=== PATIENT | female | born 1940 | race Caucasian/White ===

== ENCOUNTER 2020-05-25 07:06 | Observation (INO) ==
--- NOTE | 2020-05-21 09:31 | Anesthesiology Consultation ---
Date of Service May 21, 2020 Assessment & Plan (1) Encounter for pre-operative examination: Chart Review Chart Review: Acceptable Risk for Surgery and Patient NOT seen in Pre Admission Testing - Check BSG and PT/INR AM DOS Per nursing assessment 05/20/20, pt denies any recent travel. No known Covid positive contacts or Covid related symptoms. [facility] Rapid Covid testing 05/20/20= negative Seen by cardio 05/13/20= Overall stable at cardio visit. Cardio ensuring patient has follow up this Fall 2019 with [facility] as previously planned to repeat ECHO to follow MV disease. Will also ensure patient follows with vascular in the future to monitor carotid disease. No med changes made at appt. Follow up with pacemaker clinic as scheduled. "Regarding preoperative cardiac evaluation she is clinically stable at today's visit but certainly has significant mitral valve disease increasing perioperative cardiac risk but acceptable given current status " History Surgery Operation Date: 05/25/20 10:40 Proposed Procedures p Left Total Knee Arthroplasty - Willy Kaminski MD Height/Weight Height: 5 ft 5 in Weight: 58.967 kg Allergies Allergy/AdvReac Type Severity Reaction Status Date / Time Estrogens Allergy Severe THROAT Verified 05/20/20 16:02 SWELLING levofloxacin [From Levaquin] Allergy Unknown FACIAL Verified 05/20/20 16:02 NUMBNESS propoxyphene Allergy Unknown FACIAL Verified 05/20/20 16:02 [From Darvocet-N 100] NUMBNESS, NOSEBLEED Medications Home Medications Medication Instructions Recorded Confirmed Last Taken Centrum Silver Women 1 tab PO QAM 11/26/19 05/20/20 12/16/19 albuterol sulfate 2.5 mg INHALATION QID PRN 11/26/19 05/20/20 Unknown albuterol sulfate [Ventolin HFA] 2 puff INHALATION QID PRN 11/26/19 05/20/20 Unknown aspirin [Aspirin Low Dose] 81 mg PO QAM 11/26/19 05/20/20 12/16/19 atenolol 12.5 mg PO QAM 11/26/19 05/20/20 12/16/19 atorvastatin 80 mg PO PM 11/26/19 05/20/20 12/16/19 cholecalciferol (vitamin D3) 25 mcg PO QAM 02/19/20 08/13/20 03/10/20 [Vitamin D3] dicyclomine 20 mg PO QID PRN 11/26/19 05/20/20 Unknown docusate sodium 100 mg PO QAM 11/26/19 05/20/20 12/16/19 fluocinolone acetonide oil 5 drp OTIC (EAR) Q OTHER DAY PRN 11/26/19 05/20/20 Unknown glipizide 2.5 mg PO QAM 11/26/19 05/20/20 12/16/19 hydrochlorothiazide 25 mg PO QAM 11/26/19 05/20/20 12/16/19 levothyroxine 50 mcg PO QAM 11/26/19 05/20/20 12/16/19 losartan 50 mg PO QAM 11/26/19 05/20/20 12/16/19 omega 5-hpo-snx-fish oil [Fish Oil] 1 cap PO QAM 11/26/19 05/20/20 12/16/19 omeprazole 20 mg PO QAM 11/26/19 05/20/20 12/16/19 ondansetron HCl 4 mg PO Q8H PRN 11/26/19 05/20/20 Unknown warfarin 2.5 mg PO HS 11/26/19 05/20/20 12/16/19 fluticasone propionate [Flonase] 2 spray INTRANASAL DAILY PRN 05/20/20 05/20/20 Unknown Past Medical History Medical History (Updated 05/21/20 @ 09:58 by Salma Kelly PA-C) Asthma stable/follows with Dr. Baker Carotid artery disease s/p right carotid endarterectomy (2016) Chronic kidney disease Stage III/PCP monitoring Chronic obstructive pulmonary disease stable/follows with Dr. Baker Diabetes mellitus, type 2 NIDDM -- recently PCP placed glipizide on hold since 04/2020 for an unknown reason. no scheduled follow up per patient. 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 Mitral regurgitation jet is directed anteriorly. Degenerative mitral valve with restricted motion of the posterior mitral valve leaflet- degenerative MV stenosis per 06/2019 ECHO Paroxysmal atrial fibrillation Rheumatoid arthritis no meds Past Family History Family History Sister Family history of diabetes mellitus Daughter Family history of diabetes mellitus Past Surgical History Surgical History History of bowel resection History of carotid endarterectomy right (2017) History of cataract surgery bilateral History of esophagogastroduodenoscopy (EGD) Hx of cholecystectomy Hx of colonoscopy Hx of tubal ligation Social History Smoking Status: Never smoker Do You Dip or Chew Tobacco: No Hx Alcohol Use: No Hx Substance Use: No substance use type: does not use Testing Laboratory Results Laboratory Tests 12/11/19 05/04/20 05/04/20 10:06 09:49 09:49 WBC 8.20 Hgb 11.7 L Hct 37.9 Plt Count 166 PT 20.1 H INR 2.0 H APTT 35.9 H Sodium Potassium Chloride Carbon Dioxide BUN Creatinine Glucose Hemoglobin A1c 5.9 H 05/04/20 09:49 WBC Hgb Hct Plt Count PT INR APTT Sodium 142 Potassium 4.0 Chloride 108 H Carbon Dioxide 27 BUN 17 Creatinine 1.14 Glucose 115 H Hemoglobin A1c Electrocardiogram Date: 12/11/19 AV dual-paced rhythm at 69bpm. Chest X-Ray Date: 12/11/19 Dual lead left subclavian pacemaker is in place. There is moderate cardiomegaly. Extensive mitral annular calcification is noted. There is no pneumothorax or pleural effusion. There is no consolidation to suggest pneumonia. Subtle interstitial thickening with Jhonny B lines is noted. IMPRESSION: Mild i nterstitial thickening which favors mild interstitial pulmonary edema. Moderate cardiomegaly. Echocardiogram Date: 06/11/19 Other Findings: + LVH (mild/concentric) LVEF 65-69%. No RWMA. Severe LAE. Moderate to severe MR. Mitral regurgitation jet is directed anteriorly. Degenerative mitral valve with restricted motion of the posterior mitral valve leaflet. Mild TR/MA. Mild ALBARO. PASP 34mmhg. Grade II diastolic dysfunction. Compared to 08/22/18, no significant change per report. Stress Test Date: 10/10/17 Type: nuclear Lexiscan nuclear cardiac stress test negative for ischemia. Gated SPECT images reveal normal myocardial thickening and wall motion. LVEF 76% post stress. 74% MPHR. Other Testing Pacemaker Check 11/26/19= Medtronic. Implanted 04/14/13. Atrial paced 23%, RV paced 100%. 2.77 volts of battery life with estimated longevity of 3.5 years. Mode DDDR. Normal pacemaker function. Adequate battery reserve. Stable pacing thresholds. Carotid doppler 09/27/18= Right ICA <50% stenosis, left ICA 50-69 stenosis. Consistent with previous exam.
--- NOTE | 2020-05-21 18:16 | History and Physical Report ---
DATE OF ADMISSION: 05/25/2020 CHIEF COMPLAINT: Left knee pain, discomfort and instability. HISTORY OF PRESENT ILLNESS: The patient is an 79-year-old female who presents for surgical treatment of her left knee. She has a several year history of increasing left knee pain and discomfort. Her has been a patient of mine, had both of his knees replaced and she has been waiting until he recovered from this to consider knee replacement surgery. She has got global pain in her left knee. It has gotten worse over time. The more she walks, the more it hurts and she limps more as the day goes on. She tried injections, which helped very minimally. She can only walk a couple of blocks before she is limited by the pain. Her knee also feels unstable. She cannot take NSAIDs as she is on Coumadin and has a pacemaker. Of note, we had scheduled her for surgery in the past but was canceled due to the pandemic. She now would like to have her knee fixed. Her symptoms have only progressed. PAST MEDICAL HISTORY: 1. Hypertension. 2. Elevated cholesterol. 3. Irregular heartbeat with a pacemaker. 4. History of congestive heart failure in the past, followed by Dr. Beltran. 5. Asthma. 6. Diabetes x6 years. 7. Gastroesophageal reflux disease. 8. Hiatal hernia. 9. Hypothyroidism. PAST SURGICAL HISTORY: Includes: 1. Cholecystectomy. 2. Pacemaker placement. 3. LTS. ALLERGIES: DARVOCET, WHICH CAUSES NUMBNESS. CURRENT MEDICINES: Include: 1. Albuterol. 2. Aspirin. 3. Atenolol. 4. Lipitor. 5. Vitamin D3. 6. Dicyclomine. 7. Fluticasone nasal spray. 8. Glipizide. 9. Hydrochlorothiazide. 10. Levothyroxine. 11. Losartan. 12. Multivitamin. 13. Omeprazole. 14. [place]-3. 15. Zoster vaccine. 16. Coumadin 2.5 mg a day. SOCIAL HISTORY: Significant for an 79-year-old female. Lives in [place]. Does not smoke. FAMILY HISTORY: Noncontributory. REVIEW OF SYSTEMS: As above. She is on Coumadin and has a pacemaker in place. Denies any chest pain. She did recently see Dr. Beltran and he felt she was medically optimized. No known bleeding problems. PHYSICAL EXAMINATION GENERAL: Shows a thin, pleasant elderly female. Looks to be in pretty good health. Certainly looks better than her medical history. HEENT: Benign. NECK: Supple, no lymphadenopathy. LUNGS: Clear to auscultation. HEART: Has a regular rate and rhythm. ABDOMEN: Soft, nontender, nondistended. EXTREMITIES: Grossly neurovascularly intact except as follows: Examination of the left knee reveals the patient ambulates independently. She has a varus alignment to her knee with a varus thrust with weightbearing. She limps on the left side. Small knee effusion. She is tender over the medial joint line. Range of motion 5-115. No instability. No pain with hip motion. X-RAYS: X-rays of the left knee were reviewed. It shows advanced medial compartment DJD. She has got complete loss of medial joint space. She has a little bit of tibial femoral subluxation. 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 ASSESSMENT: An 79-year-old female with multiple medical comorbidities including hypertension, elevated cholesterol, irregular heartbeat with a pacemaker in place, congestive heart failure, asthma, diabetes, gastroesophageal reflux disease and hiatal hernia with advanced left knee degenerative joint disease. She has failed conservative measures and would like to have her left knee replaced. She was scheduled previously but canceled it due to the pandemic and would not like to proceed. She has been seen by her land surveying manager and medically optimized. PLAN: We will take her to the operating room and do a left total knee replacement. The risks and benefits of this procedure were explained to the patient including but not limited to DVT, PE, , infection, neurological injury, vascular injury, bleeding problem, pain, limited range of motion, stiffness, failure to relieve her symptoms, incomplete relief of symptoms, need for further surgery in the future, fracture, leg length inequality, nerve palsy, etc. The patient understands and desires to proceed. Informed consent was obtained. She knows to hold her Coumadin 5 days preop. We will check a PT and INR on the morning of surgery. We will use insulin sliding scale coverage in the hospital. She knows to take her atenolol on the morning of surgery. She is planning to be discharged home using [facility] home health program.
[~2020-05-25 07:06] MED LIST: ACETAMINOPHEN 500 MG TAB PO SCH; BUPIVACAINE 0.5 % 5 MG/1 ML PF 10ML VIAL ONE; BUPIVACAINE LIPOSOME/PF 266 MG, BUPIVACAINE/EPINEPHRINE 50 ML, SODIUM CHLORIDE 0.9% 30 ... INFIL SCH; CEFAZOLIN 2000MG 2,000 MG/15 ML SYR IV SCH; EPINEPHrine INJ 1 MG/ML AMP ONE; FAMOTIDINE 20 MG TAB PO SCH; GABAPENTIN 300 MG CAP PO SCH; LR 15ML/HR IV SCH; LR 60ML/HR IV SCH; METOCLOPRAMIDE HCL 10 MG TABLET PO SCH; MIDAZOLAM HCL 1 MG/ML 2ML VIAL ONE; ROPIVACAINE 0.5% 5 MG/ML 30 ML VIAL ONE; TRANEXAMIC ACID 1,000 MG **IV Intra-op IV SCH; fentaNYL citrate 100 MCG/2 ML VIAL ONE
[2020-05-25 07:46] LABS: INR 1.1 (0.9-1.1); Partial Thromboplastin Time 27.1 Seconds (21.0-31.0); Prothrombin Time 11.8 Seconds (9.0-12.0)
[2020-05-25] MEDS ORDERED: BUPIVACAINE/EPINEPHRINE 0.25% 1:200,000 30 ML VIAL ONE (08:31)
[2020-05-25] MEDS ORDERED: BUPIVACAINE LIPOSOME 1.3% 266 MG/20 ML VIAL ONE (08:32)
[2020-05-25] MEDS ORDERED: SODIUM CHLORIDE 0.9% PF 50 ML VIAL ONE (08:32)
[2020-05-25] MEDS ORDERED: BACITRACIN INJ 50,000 UNIT VIAL ONE (08:32)
--- NOTE | 2020-05-25 08:37 | History & Physical Bridge Note ---
Date of Service May 25, 2020 History & Physical Bridge Note I have examined the patient, reviewed the History & Physical and in the interval since the performance of the History & Physical I have noted the following changes of clinical significance: no changes noted
[2020-05-25] MEDS ORDERED: ePHEDrine sulfate 50 MG/ML AMP IV PRN (10:07)
[2020-05-25] MEDS ORDERED: ATROPINE SULFATE 0.1 MG/ML 10ML SYR IV PRN (10:07)
--- NOTE | 2020-05-25 10:27 | Post Operative Brief Note ---
PG Immediate Post Op with CF Date of Surgery May 25, 2020 Pre & Post Diagnosis Operation Date: 05/25/20 08:50 Pre-Op Diagnosis: Left Knee Advanced Degenearative Joint Disease Post-Op Diagnosis: Left Knee Advanced Degenearative Joint Disease I identified the patient and participated in the time-out.: Yes Procedure Operation Date: 05/25/20 08:50 Actual Procedures p Left Total Knee Arthroplasty(Left) - Willy Kaminski MD Surgeon Willy Kaminski MD Pipe Assembly Worker [place], PAC Estimated Blood Loss 50 Findings Consistent with Post-Op Diagnosis Fluids 200 cc Specimens Specimen Description: A. Left Knee Bone and Tissue Drains Diaz Catheter Anesthesia Type Spinal MAC Complications none Disposition Accompanied Patient To Recovery: No Disposition: Recovery Room
--- NOTE | 2020-05-25 10:44 | Operative Report ---
Post Operative Report Pre & Post Diagnosis Operation Date: 05/25/20 08:50 Pre-Op Diagnosis: Left Knee Advanced Degenearative Joint Disease Post-Op Diagnosis: Left Knee Advanced Degenearative Joint Disease I identified the patient and participated in the time-out.: Yes Procedure Operation Date: 05/25/20 08:50 Actual Procedures p Left Total Knee Arthroplasty(Left) - Willy Kaminski MD Surgeon Willy Kaminski MD Pipe Or Steam Fitter Furnace Installer [place], PAC Estimated Blood Loss 50 Findings Consistent with Post-Op Diagnosis Operative findings revealed advanced left knee DJD with extensive grade 4 [id number] disease of the medial compartment with eburnation of the distal femur as well as proximal tibia. She had osteophytes primarily medial. She had a fixed flexion contracture of the knee and a varus deformity. Moderate-sized joint effusion. Fluids 200 cc. Specimens Left knee sent for pathology. Drains None. Anesthesia Type Spinal MAC Complications none Disposition Accompanied Patient To Recovery: No Disposition: Recovery Room Indications Patient is an 79-year-old female with a host of underlying medical issues who is had a long history of left knee pain discomfort. She is been through extensive conservative treatment which became less successful over time. X-rays show advanced medial compartment arthritis. She failed all conservative measures and elected proceed with surgical treatment. Description of Procedure Operative implants consist of: 1. Biomet Vanguard size 60 left posterior stabilized femoral component. 2. Biomet size 63 tibial tray. 3. 12 mm posterior stabilized polyethylene insert. 4. 28 x 8 all poly-patella. The patient was taken to the operating room identified and placed on the operating table supine position protectors were properly padded. IV antibiotics arrived by anesthesia team. A spinal anesthetic and abductor canal block had been provided in the holding area. Diaz catheter was placed in sterile fashion. Left atrium was then placed in the left lower extremities and prepped draped in usual sterile fashion. The left leg was elevated exsanguinated with use of an Esmarch and turns placed at 300 mmHg. An anterior posterior left knee was then performed to longitudinal incision centered over the patella. Sharp dissection was got through subcutaneous tissue down to the extensor mechanism. A medial parapatellar arthrotomy incision was made. Some subperiosteal dissection was carried out medially. The fat pad was resected from the patella tendon. Lateral patellofemoral ligament was released. Patella was subluxated laterally and the knee was flexed. The osteophytes were taken off the distal femur. The ACL and PCL were then released from distal femur the tibia subluxate anteriorly. The external tibial alignment jig was then placed in the interface the tibia and adjusted 14 mm medially. Proximal tibial cut was made remove about 2 mm of bone from most efficient aspect medial tibial plateau. Some osteophytes were taken off medial and posterior medially. The tibia sized to a size 63. Attention drawn the femur. The distal femur turned the sharp drop with intramedullary canal was suction. A left 5 degree valgus cutting guide was placed. This femoral cutting block was pinned in place. Distal femoral cut was made to take an additional 3 mm of bone off distal femur. The femur was then sized to a size 60. We downsized this just slightly. The AP cutting block was pinned parallel to the epicondylar axis which was 4 degrees of external rotation. The anterior cut, anterior chamfer, posterior cut, posterior chamfer cuts were made. Box cutting guide was placed in just slight lateral box cut was made. The knee was flexed. The remnants of the medial lateral menisci were excised. The osteophytes were taken off the posterior aspect of the femur. A trial femoral component was placed for the tibial tray was pinned in maximum external rotation and the drill and stem punch we used to create defect in proximal tip for the tibial tray. Knee was then trialed and the 12 mm insert fit most appropriately. Attention drawn the patella. The patella was cleaned of all soft tissues. Patella thickness measured 18 mm in thickness was cut down to 12. Size a size 28 patella. Locals were drilled for the 28 patella. The lateral osteophyte is moved. Patella button was placed. Knee was taken through range of motion patella tracked nicely with no thumbs test. Attention drawn to place the permanent components. All trial components were removed. Bone plug was placed in the distal femur limit blood loss put a double batch [place] G cement was mixed. A Biomet Vanguard size 60 left posterior stabilized femoral component, size 63 tibial tray, a 12 mm posterior box polyethylene insert, and a 28 x 8 all poly-patella were then cemented in place. The knee was brought out into full extension until cement hardened. Final cement check was then performed. Pericapsular tissues were injected with total 100 cc of combination of 20 cc of Exparel, 30 cc normal saline, 50 cc of quarter percent Marcaine with epinephrine. The turn was then for a final tourniquet time of 52 minutes. Hemostasis assured use electrocautery. The extensor mechanism closed with combination 1 PDS suture #1 Vicryl suture in [id number] fashion. Extensor mechanism checked found to be intact with subcutaneous tissues then closed with 2-0 Dexon suture in a buried interrupted fashion the skin was closed skin kathryn. Leg was then cleaned dried a sterile dressing composed Xeroform, 4 x 4's, sterile cast padding and Amador bandage were applied. The patient then transferred to the recovery room in stable condition. Patient tolerated procedure well no complications. Yang Wood, my physician orthodontic assistant, was present for the entire procedure. His assistance was required for appropriate patient positioning, prepping and draping, surgical exposure, performing the technical details of the operation, placement of the implants, closure of the wound, and placement of the sterile bandage. I attest to the content of the Intraoperative Record and any orders documented therein. Any exceptions are noted below.
--- NOTE | 2020-05-25 10:49 | XRay Report ---
XR knee LT 1 or 2V routine HISTORY: 79 years-old Female Surgical Post Op left knee total joint arthroplasty COMPARISON: None TECHNIQUE: 2 views of the left knee. FINDINGS: Left knee total joint arthroplasty and patella resurfacing. Anterior midline skin kathryn are noted a long with expected postsurgical soft tissue swelling and deep tissue air. No acute fracture or retain ed foreign body. IMPRESSION: Left knee total joint arthroplasty and patella resurfacing with expected postoperative ch anges. ACT 112: Negative or not required by law. The above report was generated using voice recognition software. It may contain grammatical, syntax o r spelling errors. Electronically signed by: Johny Pineda M.D. 05/25/2020 10:48 AM
--- NOTE | 2020-05-25 11:39 | Anesthesiology Progress Note ---
Date of Service May 25, 2020 Anesthesia Post Procedure Vital Signs Vital Signs: Temp Pulse Pulse Resp BP Pulse Ox 05/25/20 11:35 36.3 C L 69 13 132/58 L 96 05/25/20 11:30 36.3 C L 71 14 132/58 L 93 05/25/20 11:20 34.6 C L 72 16 141/60 H 96 05/25/20 11:10 34.6 C L 73 14 131/50 L 91 05/25/20 11:00 73 18 131/48 L 93 05/25/20 10:50 34.6 C L 75 19 134/60 91 05/25/20 10:40 34.6 C L 73 14 133/57 L 95 05/25/20 10:33 36.6 C 73 16 132/56 L 97 05/25/20 08:15 71 18 149/76 H 97 05/25/20 07:42 36.7 C 72 18 155/62 H 97 Pain Intensity Left Knee: Pain Intensity: 0 Transfer of Care Handoff Completed per policy Notes Mental Status: alert / awake / arousable Patient Amnestic to Procedure: Yes Nausea / Vomiting: adequately controlled Pain: adequately controlled Airway Patency, RR, SpO2: stable & adequate BP & HR: stable & adequate Hydration State: stable & adequate Neuraxial Anesthesia: was administered and sensory block is resolving Anesthetic Complications: no major complications apparent
[2020-05-25] MEDS ORDERED: GLUCOSE 10 TABS/TUBE PO PRN (11:56)
[2020-05-25] MEDS ORDERED: MAGNESIUM HYDROXIDE SUSP 30 ML UDC PO PRN (11:56)
[2020-05-25] MEDS ORDERED: ONDANSETRON INJ 2 MG/ML 2 ML VIAL IV PRN (11:56)
[2020-05-25] MEDS ORDERED: DICYCLOMINE HCL 20 MG TAB PO PRN (11:56)
[2020-05-25] MEDS ORDERED: NALOXONE HCL 0.4 MG/1 ML VIAL/CARP IV PRN (11:56)
[2020-05-25] MEDS ORDERED: bisacodyL 10 MG SUPP PR PRN (11:56)
[2020-05-25] MEDS ORDERED: ALBUTEROL 0.083% NEBU SOLN 3 ML VIAL INH PRN (11:56)
[2020-05-25] MEDS ORDERED: ALUMINUM/MAGNESIUM SUSP 30 ML UDC PO PRN (11:56)
[2020-05-25] MEDS ORDERED: FLUTICASONE PROPIONATE NA SPR 16 GM BTL NAE PRN (11:56)
[2020-05-25] MEDS ORDERED: DEXTROSE 50% 50 ML SYRINGE IV PRN (11:56)
[2020-05-25] MEDS ORDERED: GLUCOSE 40% GEL 15 GM TUBE PO PRN (11:56)
[2020-05-25] MEDS ORDERED: METOCLOPRAMIDE HCL INJ 5 MG/ML 2 ML VIAL IV PRN (11:56)
[2020-05-25] MEDS ORDERED: GLUCAGON FOR INJ 1 MG VIAL SQ PRN (11:56)
[2020-05-25] MEDS ORDERED: CARBOHYDRATES FOR HYPOGLYCEMIA PO PRN (11:56)
[2020-05-25] MEDS ORDERED: ALBUTEROL HFA 8 GM INHALER INH PRN (11:56)
[2020-05-25] MEDS ORDERED: ONDANSETRON 4 MG OD TAB PO PRN (12:14)
[2020-05-25] MEDS ORDERED: PHARMACY GLYCEMIC MGMT CONSULT PRN (12:18)
[2020-05-25] MEDS: SODIUM CHLORIDE 0.9% 1000ML 1,000 ML IV SCH ×3 (12:26→21:05)
[2020-05-25] MEDS: ACETAMINOPHEN 500 MG TAB PO SCH ×2 (12:35→21:00)
[2020-05-25] MEDS: INSULIN ASPART 100 UNITS/ML 3 ML PEN SC SCH ×3 (12:35→20:52)
[2020-05-25] MEDS: KETOROLAC TROMETHAMINE 15 MG/ML VIAL IV SCH ×2 (12:36→17:42)
--- NOTE | 2020-05-25 13:35 | Cardiology Consultation ---
Date of Consultation May 25, 2020 Assessment & Plan (1) Encounter for pre-operative examination: Patient now seen postoperatively tolerated procedure well no arrhythmias or signs of volume overload. Patient to complete IV fluids this evening resume anticoagulation with warfarin later today We will follow patient hospital currently doing well Advised patient to summon help with any change in symptoms or complaints (2) Hx of congestive heart failure: Currently well compensated past diastolic dysfunction secondary to valvular disease, mitral insufficiency (3) Paroxysmal atrial fibrillation: Patient to resume warfarin (4) Mitral valve disease: No signs of volume overload currently. Medicines continue History of Present Illness Reason for Consultation: Postoperative follow-up status post knee replacement, underlying valvular disease Requesting Physician: Dr. Kaminski Attending Physician: Willy Kaminski MD History of Present Illness Patient is an 79-year-old female with complex underlying history which includes 1. Chronic diastolic heart failure secondary to valvular disease with preserved ejection fraction 2. Complete heart block status post dual chamber pacemaker April 14, 2013, Medtronic [id number] 3. Paroxysmal atrial fibrillation chronic warfarin 4. Valvular heart disease with a history of moderate to severe MR and moderate MS 5. Hypertension 6. Dyslipidemia on atorvastatin 7. Carotid artery disease status post right carotid endarterectomy August 07, 2017 Patient seen today postop left total knee replacement without cardiac complaint. Minimal discomfort though sensory block still in place. No respiratory distress or discomfort. Patient relatively astute and aware of her medical management and treatments. Denies fevers chills or cough. No worsening chest pain or shortness of breath. No dizziness or lightheadedness. No tenderness over pacemaker site. Was very active about her home yesterday. No signs or symptoms of fluid retention or edema. No neurologic complaints currently no bleeding issues chronically. Appetite and weight are generally stable Allergies Allergy/AdvReac Type Severity Reaction Status Date / Time Estrogens Allergy Severe THROAT Verified 05/25/20 07:26 SWELLING levofloxacin [From Levaquin] Allergy Unknown FACIAL Verified 05/25/20 07:26 NUMBNESS propoxyphene Allergy Unknown FACIAL Verified 05/25/20 07:26 [From Darvocet-N 100] NUMBNESS, NOSEBLEED Home Medications Home Medications Medication Instructions Recorded Confirmed Type Centrum Silver Women 1 tab PO QAM 11/26/19 05/25/20 History albuterol sulfate 2.5 mg INHALATION QID PRN 11/26/19 05/25/20 History albuterol sulfate [Ventolin HFA] 2 puff INHALATION QID PRN 11/26/19 05/25/20 History aspirin [Aspirin Low Dose] 81 mg PO QAM 11/26/19 05/25/20 History atenolol 12.5 mg PO QAM 11/26/19 05/25/20 History atorvastatin 80 mg PO PM 11/26/19 05/25/20 History cholecalciferol (vitamin D3) 25 mcg PO QAM 11/26/19 05/25/20 History [Vitamin D3] dicyclomine 20 mg PO QID PRN 11/26/19 05/25/20 History docusate sodium 100 mg PO QAM 11/26/19 05/25/20 History fluocinolone acetonide oil 5 drp OTIC (EAR) Q OTHER DAY PRN 11/26/19 05/25/20 H istory glipizide 2.5 mg PO QAM 11/26/19 05/25/20 History hydrochlorothiazide 25 mg PO QAM 11/26/19 05/25/20 History levothyroxine 50 mcg PO QAM 11/26/19 05/25/20 History losartan 50 mg PO QAM 11/26/19 05/25/20 History omega 0-hie-uay-fish oil [Fish Oil] 1 cap PO QAM 11/26/19 05/25/20 History omeprazole 20 mg PO QAM 11/26/19 05/25/20 History ondansetron HCl 4 mg PO Q8H PRN 11/26/19 05/25/20 History warfarin 2.5 mg PO HS 11/26/19 05/25/20 History fluticasone propionate [Flonase] 2 spray INTRANASAL DAILY PRN 05/20/20 05/25/20 History acetaminophen [Tylenol] 325 mg PO QID PRN 05/25/20 05/25/20 History Patient History Medical History Asthma stable/follows with Dr. Baker Carotid artery disease s/p right carotid endarterectomy (2017) Chronic kidney disease Stage III/PCP monitoring Chronic obstructive pulmonary disease stable/follows with Dr. Baker Diabetes mellitus, type 2 NIDDM -- recently PCP placed glipizide on hold since 04/2020 for an unknown reason. no scheduled follow up per patient. 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 Mitral regurgitation jet is directed anteriorly. Degenerative mitral valve with restricted motion of the posterior mitral valve leaflet- degenerative MV stenosis per 06/2019 ECHO Paroxysmal atrial fibrillation Rheumatoid arthritis no meds Surgical History History of bowel resection History of carotid endarterectomy right (2016) History of cataract surgery bilateral History of esophagogastroduodenoscopy (EGD) Hx of cholecystectomy Hx of colonoscopy Hx of tubal ligation Family History Sister Family history of diabetes mellitus Daughter Family history of diabetes mellitus Social History Smoking Status: Never smoker Second Hand Exposure: No; Do You Dip or Chew Tobacco: No; Tobacco Cessation Education Requested by Patient: No Hx Alcohol Use: No Hx Substance Use: No Preferred Language: Azeri Communication Ability: Effective Enterer Required: No Beliefs That Will Affect Care: None marital status: Current Living Situation: Spouse Other Information That Helps Us Care for You: No Feels Safe at Home: Yes Safety Concerns: Feels Safe At This Time Review of Systems Review of Systems: All systems reviewed & are unremarkable except as noted in HPI & below Physical Exam Constitutional: WD/WN, vitals as above Eyes: PERRL, conjunctivae normal, anicteric sclerae ENMT: external ear and nose normal, oropharynx normal Neck: trachea midline, no thyromegaly Well-healed right carotid endarterectomy Respiratory: normal respiratory effort, lungs clear to auscultation Cardiovascular: Rate/Rhythm: regular rate and regular rhythm Heart Sounds: normal S1, normal S2 and + murmur (Grade 3/6 holosystolic murmur heard throughout the precordium, no diastolic murmur audible); no gallop Palpation: normal PMI Vessels: normal carotid upstroke and radial pulses present; no JVD and no carotid bruit Extremities: no edema Chest (Breasts): Chest: + pacemaker (No site erythema or tenderness) Gastrointestinal (Abdomen): normal bowel sounds, soft, nontender, no hepatosplenomegaly Musculoskeletal: Left knee bandaged with ice pack good capillary refill distal Skin: no rashes, warm and dry Neurologic: PERRL, EOMI, accommodation nl, no face palsy, no dysarthria Psychiatric: A+Ox3, euthymic affect Results & Data ([facility]) Vital Signs (Past 12 Hours) Vital Signs Temp Pulse Pulse Pulse Resp BP Pulse Ox 05/25/20 12:50 36.4 C L 70 18 133/67 99 05/25/20 12:17 68 16 147/68 H 96 05/25/20 11:50 36.4 C L 69 16 126/67 99 05/25/20 11:35 36.3 C L 69 13 132/58 L 96 05/25/20 11:30 36.3 C L 71 14 132/58 L 93 05/25/20 11:20 34.6 C L 72 16 141/60 H 96 05/25/20 11:10 34.6 C L 73 14 131/50 L 91 05/25/20 11:00 73 18 131/48 L 93 05/25/20 10:50 34.6 C L 75 19 134/60 91 05/25/20 10:40 34.6 C L 73 14 133/57 L 95 05/25/20 10:33 36.6 C 73 16 132/56 L 97 05/25/20 08:15 71 18 149/76 H 97 05/25/20 07:42 36.7 C 72 18 155/62 H 97 Laboratory Results Laboratory Results - last 24 hr 05/25/20 05/25/20 05/25/20 07:23 07:38 12:19 PT 11.8 INR 1.1 APTT 27.1 PTT Ratio 1.0 POC Glucose 145 H 145 H
--- NOTE | 2020-05-25 13:49 | Pharmacy Report ---
Glycemic Control Consultation - Date of Service May 25, 2020 - Scope Scope: Glycemic Pharmacist consulted for glycemic control and to write orders per [facility] inpatient glycemic control protocol. - Objective Weight: 60.6 kg Accuchecks BSG (last 24hrs): 05/25/20 05/25/20 07:38 12:19 POC Glucose 145 H 145 H - Recent Pertinent Medications Outpatient Anti-diabetic Regimen: * glipizide ER 2.5 mg PO daily * A1c = 5.9 % 12/11/19 Risk Factors for Insulin Resistance: * Recent Surgery: POD 0 for L knee surgery * Diet: T2DM - Assessment & Plan Assessment & Plan: ASSESSMENT: * Ms Damon is an 79 y/o F with a PMH of well-controlled T2DM on one oral med. Patient is POD 0 for L knee surgery. Fasting BSG 145 mg/dL. * Since patient did not receive steroids, will utilize weight-based stress of 3 Novolog without Lantus. * Pt is maintained on oral antidiabetic agents as an outpatient * Oral agents are not recommended for inpatient use d/t drug interactions, changing PO intake, and difficulty titrating for acute hyper/hypoglycemia. ADA recommends re-initiating outpatient oral agents 1-2 days prior to discharge if/when appropriate if they were held on admission. * ADA & AACE recommend a goal blood sugar range 140-180 mg/dl for the majority of critically ill & non-critically ill patients. However, more stringent targets may be selected in individual cases. Will utilize more stringent goal of 110-140mg/dl based on patient age & comorbidities. Additionally, tighter glycemic control is warranted to facilitate wound/infection healing. PLAN FOR INPATIENT GLYCEMIC CONTROL: * Holding outpatient oral diabetes medications * Bolus insulin * NovoLog per scale ACHS or Q6hrs while NPO * Goal Range: Low 110 mg/dL - High 140 mg/dL * Correction Factor: 25 mg/dL/unit * Nutritional / Prandial insulin per carb ratio of 1 unit per 9 grams CHO consumed * Please note that the plan above was derived based on current level of insulin resistance and hospital stress. These recommendations are appropriate for inpatient admission only. Plan of care upon discharge will need to be reassessed to avoid potential outpatient hypo/hyperglycemia. Thank you.
[2020-05-25] MEDS ORDERED: WARFARIN SOD 5 MG TAB PO ONE (16:00)
[2020-05-25] MEDS: CEFAZOLIN 1000MG 1,000 MG/7.5 ML SYR IV SCH (16:30)
[2020-05-25] MEDS ORDERED: TRANEXAMIC ACID / 0.7% NACL 1,000 MG/100 ML BAG IV SCH (16:31)
[2020-05-25] MEDS: ASCORBIC ACID 500 MG TAB PO SCH (17:42)
[2020-05-25] MEDS: FERROUS GLUCONATE 324 MG TAB PO SCH (17:42)
[2020-05-25] MEDS: TRAMADOL HCL 50 MG TABLET PO PRN (20:50)
[2020-05-25] MEDS: DOCUSATE SODIUM 100 MG CAP PO SCH (20:54)
[2020-05-25] MEDS: ATORVASTATIN 40 MG TAB PO SCH (20:54)
[2020-05-25] MEDS: SENNA 8.6 MG TAB PO SCH (20:55)
[2020-05-26] MEDS: CEFAZOLIN 1000MG 1,000 MG/7.5 ML SYR IV SCH (01:06)
[2020-05-26] MEDS: KETOROLAC TROMETHAMINE 15 MG/ML VIAL IV SCH ×3 (01:06→11:02)
[2020-05-26] MEDS: LEVOTHYROXINE SODIUM 50 MCG TABLET PO SCH (05:42)
[2020-05-26] MEDS: ACETAMINOPHEN 500 MG TAB PO SCH ×3 (05:42→22:02)
[2020-05-26 05:52] LABS: Hematocrit (blood only) 32.2 % (37-47); Hemoglobin 10.3 g/dL (12.0-16.0); Mean Corpuscular Volume 84.5 fL (80-100); Mean Platelet Volume 11.4 fL (7.4-10.4); Platelet Count 107 K/uL (130-400); RDW Coefficient of Variation 15.3 % (11.5-14.5); Red Blood Count 3.81 M/uL (4.2-5.4); White Blood Count 13.27 K/uL (4.8-10.8)
[2020-05-26 06:01] LABS: INR 1.2 (0.9-1.1); Prothrombin Time 12.2 Seconds (9.0-12.0)
[2020-05-26 06:20] LABS: BUN Creatinine Ratio 17.7 (10-20); Calcium 7.5 mg/dl (8.5-10.1); Creatinine Clr Calc Pharmacy 22.3 ml/min; Est GFR (African American) 30.1; Est GFR (Non-African American) 25.9; Potassium 4.6 mmol/L (3.5-5.1)
[2020-05-26 06:27] LABS: Estimated Average Glucose 126 mg/dl
[2020-05-26] MEDS: INSULIN ASPART 100 UNITS/ML 3 ML PEN SC SCH ×4 (08:27→21:49)
[2020-05-26] MEDS: LOSARTAN POTASSIUM 50 MG TAB PO SCH (08:29)
[2020-05-26] MEDS: CHOLECALCIFEROL 1,000 UNITS 25 MCG TAB PO SCH (08:29)
[2020-05-26] MEDS: OMEGA-3 (PURIFIED FISH OIL) 1 GM CAP PO SCH (08:29)
[2020-05-26] MEDS: FERROUS GLUCONATE 324 MG TAB PO SCH ×2 (08:30→17:27)
[2020-05-26] MEDS: ASCORBIC ACID 500 MG TAB PO SCH ×2 (08:30→17:27)
[2020-05-26] MEDS: DOCUSATE SODIUM 100 MG CAP PO SCH ×2 (08:30→22:01)
[2020-05-26] MEDS: ATENOLOL 25 MG TABLET PO SCH (08:30)
[2020-05-26] MEDS: PANTOprazole 40 MG TAB PO SCH (08:31)
[2020-05-26] MEDS: hydroCHLOROthiazide 25 MG TAB PO SCH (08:31)
[2020-05-26] MEDS: ASPIRIN 81 MG ECTAB PO SCH (08:31)
[2020-05-26] MEDS: CEROVITE ADV FORMULA TAB PO SCH (08:31)
[2020-05-26] MEDS ORDERED: DOCUSATE SODIUM 100 MG CAP PO SCH (09:00)
[2020-05-26] MEDS ORDERED: glipiZIDE ER 2.5 MG TABCR PO SCH (09:00)
[2020-05-26] MEDS ORDERED: MULTIVITAMIN TAB PO SCH (09:00)
[2020-05-26] MEDS: TRAMADOL HCL 50 MG TABLET PO PRN ×2 (11:01→22:50)
--- NOTE | 2020-05-26 12:34 | Cardiology Progress Note ---
Date of Service May 26, 2020 Assessment & Plan (1) Encounter for pre-operative examination: Patient postoperatively tolerated procedure well no arrhythmias or signs of volume overload. We will follow patient hospital currently doing well with slight rising creatinine. Advised patient to summon help with any change in symptoms or complaints (2) Hx of congestive heart failure: Currently well compensated past diastolic dysfunction secondary to valvular disease, mitral insufficiency May require additional dose of diuretic tomorrow morning will reassess (3) Paroxysmal atrial fibrillation: Patient to resume warfarin, dose ordered for this evening, 7.5 mg (4) Mitral valve disease: Mixed mitral insufficiency and stenosis no signs of volume overload currently but may repeat require single dose of diuretic in a.m. Underlying stage III kidney disease present with mild increase in creatinine postoperatively Follow-up BMP ordered for a.m. Admission and Anticipated Discharge Date Admission Date: May 25, 2020 Subjective Patient without acute complaint. Up ambulating in room to bathroom with only surgical discomfort. No acute dyspnea. No orthopnea or tachypalpitations no dizziness or lightheadedness. Physical Exam Constitutional: WD/WN, vitals as above Eyes: PERRL, conjunctivae normal, anicteric sclerae ENMT: external ear and nose normal, oropharynx normal Neck: trachea midline, no thyromegaly Respiratory: normal respiratory effort, lungs clear to auscultation Cardiovascular: Rate/Rhythm: regular rate and regular rhythm Heart Sounds: normal S1, normal S2 and + murmur (Grade 3/6 holosystolic murmur heard throughout the precordium, no diastolic murmur audible); no gallop Palpation: normal PMI Vessels: normal carotid upstroke and radial pulses present; no JVD and no carotid bruit Extremities: no edema Chest (Breasts): Chest: + pacemaker (No site erythema or tenderness) Gastrointestinal (Abdomen): normal bowel sounds, soft, nontender, no hepatosplenomegaly Skin: no rashes, warm and dry Neurologic: PERRL, EOMI, accommodation nl, no face palsy, no dysarthria Psychiatric: A+Ox3, euthymic affect Results & Data ([facility]) Vital Signs (Past 12 Hours) Vital Signs Temp Pulse Resp BP Pulse Ox 05/26/20 07:07 36.6 C 86 16 147/65 H 93 05/26/20 04:04 36.9 C 83 18 147/71 H 93 Laboratory Results Laboratory Results - last 24 hr 05/25/20 05/25/20 05/26/20 17:12 20:39 05:32 WBC 13.27 H RBC 3.81 L Hgb 10.3 L Hct 32.2 L MCV 84.5 MCH 27.0 MCHC 32.0 RDW Std Deviation 47.0 H RDW Coeff of Marielle 15.3 H Plt Count 107 L MPV 11.4 H PT INR Sodium Potassium Chloride Carbon Dioxide Anion Gap BUN Creatinine Est Cr Clr Drug Dosing Est GFR ( Amer) Est GFR (Non-Af Amer) BUN/Creatinine Ratio Glucose POC Glucose 124 H 165 H Estimat Average Glucose Hemoglobin A1c Calcium 05/26/20 05/26/20 05/26/20 05:32 05:32 05:32 WBC RBC Hgb Hct MCV MCH MCHC RDW Std Deviation RDW Coeff of Marielle Plt Count MPV PT 12.2 H INR 1.2 H Sodium 141 Potassium 4.6 Chloride 113 H Carbon Dioxide 22 Anion Gap 6.0 BUN 32 H Creatinine 1.81 H Est Cr Clr Drug Dosing 22.3 Est GFR ( Amer) 30.1 Est GFR (Non-Af Amer) 25.9 BUN/Creatinine Ratio 17.7 Glucose 143 H POC Glucose Estimat Average Glucose 126 Hemoglobin A1c 6.0 H Calcium 7.5 L 05/26/20 05/26/20 08:04 12:19 WBC RBC Hgb Hct MCV MCH MCHC RDW Std Deviation RDW Coeff of Marielle Plt Count MPV PT INR Sodium Potassium Chloride Carbon Dioxide Anion Gap BUN Creatinine Est Cr Clr Drug Dosing Est GFR ( Amer) Est GFR (Non-Af Amer) BUN/Creatinine Ratio Glucose POC Glucose 150 H 206 H Estimat Average Glucose Hemoglobin A1c Calcium
[2020-05-26] MEDS ORDERED: WARFARIN SOD 7.5 MG TAB PO SCH (16:00)
[2020-05-26] MEDS ORDERED: WARFARIN SOD 4 MG TAB PO ONE ×2 (16:05→17:00)
--- NOTE | 2020-05-26 16:21 | Progress Notes ---
DATE: 05/26/2020 SUBJECTIVE: An 79-year-old female postoperative day 1 from left knee replacement. She is doing pretty well. Pain is controlled. No chest pain or shortness of breath. Not feeling dizzy or lightheaded. OBJECTIVE: VITAL SIGNS: Temperature is 36.4. Vital signs stable. GENERAL: Shows a pleasant elderly female. She is walking around her bathroom and looks pretty comfortable this evening. EXTREMITIES: Examination of the left leg reveals the dressing to be clean, dry and intact. No significant drainage. She can dorsiflex and plantarflex her foot appropriately. She is neurologically intact. LABORATORY DATA: Hemoglobin is 10.3. Hematocrit 32.2. Electrolytes are fairly stable. Creatinine is a bit elevated at 1.81. ASSESSMENT: An 79-year-old female with multiple medical comorbidities postoperative day 1 from a left knee replacement. She is doing well. Medically appears stable. Her pain is controlled. She is neurologically intact. Creatinine is elevated, and we will stop her Toradol. PLAN: 1. DVT prophylaxis including thigh-high TEDs, SCDs, and Coumadin. She was given Coumadin by cardiology at 7.5, but we need to back this down as her normal dose is 2.5. We will resume a 2.5 mg dose tomorrow. 2. PT/OT. Weight bear as tolerated. Left total knee protocol. 3. Pain control, doing okay with current pain regimen. 4. Elevated creatinine. We are going to hold her Toradol and encourage oral intake. We will recheck her creatinine tomorrow. 5. Disposition: She is planning to be discharged home with some home health once adequately recovered and medically stable.
[2020-05-26] MEDS: SENNA 8.6 MG TAB PO SCH (22:01)
[2020-05-26] MEDS: ATORVASTATIN 40 MG TAB PO SCH (22:01)
[2020-05-27] MEDS: HYDROmorphone INJ 0.5 MG/0.5 ML SYR IV PRN ×2 (03:21→10:17)
[2020-05-27] MEDS: ACETAMINOPHEN 500 MG TAB PO SCH ×2 (05:23→11:33)
[2020-05-27] MEDS: LEVOTHYROXINE SODIUM 50 MCG TABLET PO SCH (05:23)
[2020-05-27 06:10] LABS: INR 1.3 (0.9-1.1); Prothrombin Time 13.9 Seconds (9.0-12.0)
[2020-05-27 06:39] LABS: BUN Creatinine Ratio 23.5 (10-20); Calcium 8.5 mg/dl (8.5-10.1); Creatinine Clr Calc Pharmacy 32.3 ml/min; Est GFR (Non-African American) 40.6; Potassium 4.2 mmol/L (3.5-5.1)
[2020-05-27] MEDS: FERROUS GLUCONATE 324 MG TAB PO SCH (07:27)
[2020-05-27] MEDS: LOSARTAN POTASSIUM 50 MG TAB PO SCH (07:28)
[2020-05-27] MEDS: DOCUSATE SODIUM 100 MG CAP PO SCH (07:28)
[2020-05-27] MEDS: ASCORBIC ACID 500 MG TAB PO SCH (07:28)
[2020-05-27] MEDS: hydroCHLOROthiazide 25 MG TAB PO SCH (07:29)
[2020-05-27] MEDS: ASPIRIN 81 MG ECTAB PO SCH (07:29)
[2020-05-27] MEDS: ATENOLOL 25 MG TABLET PO SCH (07:30)
[2020-05-27] MEDS: PANTOprazole 40 MG TAB PO SCH (07:30)
[2020-05-27] MEDS: OMEGA-3 (PURIFIED FISH OIL) 1 GM CAP PO SCH (07:30)
[2020-05-27] MEDS: CHOLECALCIFEROL 1,000 UNITS 25 MCG TAB PO SCH (07:31)
[2020-05-27] MEDS: CEROVITE ADV FORMULA TAB PO SCH (07:31)
[2020-05-27] MEDS: INSULIN ASPART 100 UNITS/ML 3 ML PEN SC SCH ×2 (07:32→11:33)
[2020-05-27] MEDS: TRAMADOL HCL 50 MG TABLET PO PRN (07:37)
--- NOTE | 2020-05-27 08:17 | Progress Notes ---
DATE: 05/27/2020 SUBJECTIVE: An 79-year-old female postop day 2 from a left knee replacement. She is doing pretty well. Knee is a bit sore this morning. No chest pain or shortness of breath. Not feeling dizzy or lightheaded. OBJECTIVE: VITAL SIGNS: Temperature 36.7. Vital signs stable. GENERAL: Shows a pleasant elderly female. She is lying in bed, looks pretty comfortable. Breathing comfortably. Examination of the left leg reveals the leg to be well aligned. Dressing is clean, dry and intact. No significant drainage. Calf is soft and supple. She is neurologically intact. LABORATORY DATA: INR is 1.3. ASSESSMENT: An 79-year-old female postop day 2 from a left knee replacement, doing reasonably well. Her pain is controlled. Medically, she seems stable. She seems euvolemic. No signs of heart failure. PLAN: 1. DVT prophylaxis including thigh-high TEDs, SCDs, and Coumadin. She will resume her normal Coumadin dose on discharge. 2. PT/OT. Weightbear as tolerated. Left total knee protocol. 3. Pain control, doing well with current pain regimen. 4. Disposition: Plan to discharge to home with home health likely later today.
--- NOTE | 2020-05-27 11:01 | Cardiology Progress Note ---
Date of Service May 27, 2020 Assessment & Plan (1) Encounter for pre-operative examination: Patient postoperatively tolerated procedure well no arrhythmias or signs of volume overload. Recommend patient continue to follow daily weights at home and record for signs of fluid retention Patient has resumed usual medications with improved renal function Warfarin restarted with patient to follow usual protocol Patient to keep appointments with coagulation clinic and cardiology (2) Hx of congestive heart failure: Currently well compensated past diastolic dysfunction secondary to valvular disease, mitral insufficiency (3) Paroxysmal atrial fibrillation: (4) Mitral valve disease: Mixed mitral insufficiency and stenosis no signs of volume overload currently but may repeat require single dose of diuretic in a.m. Underlying stage III kidney disease present with mild increase in creatinine postoperatively improved on laboratory testing this morning back to baseline Admission and Anticipated Discharge Date Admission Date: May 25, 2020 Subjective Patient seen and examined, chart and medications reviewed. Patient has left knee pain mild nausea this morning no acute cardiac complaints. No dyspnea or edema Physical Exam Constitutional: WD/WN, vitals as above Eyes: PERRL, conjunctivae normal, anicteric sclerae ENMT: external ear and nose normal, oropharynx normal Neck: trachea midline, no thyromegaly Respiratory: normal respiratory effort, lungs clear to auscultation Cardiovascular: Rate/Rhythm: regular rate and regular rhythm Heart Sounds: normal S1, normal S2 and + murmur (Grade 3/6 holosystolic murmur heard throughout the precordium, no diastolic murmur audible); no gallop Palpation: normal PMI Vessels: normal carotid upstroke and radial pulses present; no JVD and no carotid bruit Extremities: no edema Chest (Breasts): Chest: + pacemaker (No site erythema or tenderness) Gastrointestinal (Abdomen): normal bowel sounds, soft, nontender, no hepatosplenomegaly Skin: no rashes, warm and dry Neurologic: PERRL, EOMI, accommodation nl, no face palsy, no dysarthria Psychiatric: A+Ox3, euthymic affect Results & Data ([facility]) Vital Signs (Past 12 Hours) Vital Signs Temp Pulse Resp BP Pulse Ox 05/27/20 09:12 36.7 C 79 14 145/65 H 92 05/27/20 06:38 36.7 C 79 14 145/65 H 92 05/26/20 23:00 36.7 C 86 18 159/71 H 96 Laboratory Results Laboratory Results - last 24 hr 05/26/20 05/26/20 05/26/20 12:19 17:04 20:41 PT INR Sodium Potassium Chloride Carbon Dioxide Anion Gap BUN Creatinine Est Cr Clr Drug Dosing Est GFR ( Amer) Est GFR (Non-Af Amer) BUN/Creatinine Ratio Glucose POC Glucose 206 H 129 H 149 H Calcium 05/27/20 05/27/20 05/27/20 05:44 05:44 07:24 PT 13.9 H INR 1.3 H Sodium 139 Potassium 4.2 Chloride 109 H Carbon Dioxide 23 Anion Gap 7.0 BUN 29 H Creatinine 1.25 H D Est Cr Clr Drug Dosing 32.3 Est GFR ( Amer) 47.0 Est GFR (Non-Af Amer) 40.6 BUN/Creatinine Ratio 23.5 H Glucose 125 H POC Glucose 139 H Calcium 8.5
[2020-05-27] MEDS ORDERED: WARFARIN SOD 5 MG TAB PO ONE (16:00)
--- NOTE | 2020-06-02 16:23 | Discharge Summary ---
Date of Service June 02, 2020 Admission HPI Per Admitting Provider Documented in the H & P Admission Exam (Per Admitting) Constitutional Documented in the H & P Discharge Data Consultations 05/25/20 11:56 Consult Cardiology Routine Consult Case Management - Discharge Planning Routine Procedures Performed Operation Date: 05/25/20 08:50 Actual Procedures p Left Total Knee Arthroplasty(Left) - Willy Kaminski MD Hospital Course (1) Status post total left knee replacement: This patient is a 79 y/o female admitted on 05/25/20 and underwent total knee replacement. She tolerated the procedure well and there were no complications. Transferred to the PACU post op and later to the orthopedic floor for further care. She was given ancef for antibiotic prophylaxis. She was also given NICANOR stockings, SCDs, and coumadin for DVT prophylaxis. Hemoglobin, hematocrit, and vital signs were monitored during her hospital stay and remained stable. Did not require any blood transfusions. There were no complications during their hospital stay. She was followed by the cardiology service during her hospital stay. By post op day #2 the patient was tolerating a regular diet, pain was reasonably controlled with oral pain medicine, and she was participating in physical therapy. On post op day #2 the patient was discharged home and set up with home health care. She was given printed discharge instructions including prescriptions for extra strength tylenol and tramadol. Continue physical therapy, weight bearing as tolerated. Continue NICANOR stockings. Follow up approximately 2 weeks post op or sooner if there are problems or concerns. Coding Level of Care Code None Diagnoses Status post total left knee replacement Z96.652
== END 2020-05-27 12:47 | disposition home health service (06) ==
LOC: 3E 07:06 → ASU 07:06